=== PATIENT | female | born 1975 | race African-American/Black ===

== ENCOUNTER → 2016-05-23 | Outpatient (CLI) | payer BC | LOC: RAD 18:15 | PROVIDERS: ATTEND Physician Assistant | DX: M54.5 Low back pain (principal); M54.6 Pain in thoracic spine | CPT/HCPCS: 72146; 72148 ==

== ENCOUNTER 2016-11-21 13:24 | Emergency (ER) | payer SELFPAY ==
[2016-11-21] MEDS ORDERED: ONDANSETRON 4 MG TAB.RAPDIS PO ONE (13:38)
--- NOTE | 2016-11-21 13:53 | ER Document Report ---
ED Medical Screen (RME) - General Chief Complaint: Abdominal Pain Stated Complaint: ABDOMINAL PAIN Time Seen by Provider: 11/21/16 13:38 Notes: Patient presents with bilateral upper quadrant abdominal pain. States that she gets the pain immediately after eating. She has had some nausea and diarrhea as well. TRAVEL OUTSIDE OF THE [place] IN LAST 30 DAYS: No - Related Data Allergies/Adverse Reactions: No Known Allergies Allergy (Verified 11/21/16 13:42) Home Medications: Current Home Medications Lisinopril/Hydrochlorothiazide [Lisinopril-Hctz 10-12.5 mg Tab] 1 each PO DAILY 11/21/16 [History] d-Vuyfail-Wbj Estr/Ethin Estra [Seasonique 0.15-0.03-0.01 Tab] 1 each PO DAILY 11/21/16 [History] Past Medical History Renal/ Medical History: Denies: Hx Peritoneal Dialysis Physical Exam - Vital signs Vitals: Temp Pulse Resp BP Pulse Ox 98.5 F 91 20 140/71 H 99 11/21/16 13:32 11/21/16 13:32 11/21/16 13:32 11/21/16 13:32 11/21/16 13:32 Course - Vital Signs Vital signs: Temp Pulse Resp BP Pulse Ox 98.5 F 91 20 140/71 H 99 11/21/16 13:32 11/21/16 13:32 11/21/16 13:32 11/21/16 13:32 11/21/16 13:32
[2016-11-21 14:14] LABS: APPEARANCE,URINE SLIGHTLY-CLOUDY; BILIRUBIN,URINE NEGATIVE (NEGATIVE); GLUCOSE, URINE NEGATIVE (NEGATIVE); KETONES,URINE NEGATIVE (NEGATIVE); LEUKOCYTE ESTERASE,URINE NEGATIVE (NEGATIVE); NITRITE,URINE NEGATIVE (NEGATIVE); PROTEIN,URINE NEGATIVE (NEGATIVE); URINE SPECIFIC GRAVITY 1.009; UROBILINOGEN,URINE NEGATIVE mg/dL (<2.0)
[2016-11-21 14:15] LABS: ABSOLUTE BASOPHILS # (AUTO) 0.1 10^3/uL (0.0-0.2); ABSOLUTE EOSINOPHILS # (AUTO) 0.2 10^3/uL (0.0-0.6); ABSOLUTE LYMPHOCYTES (AUTO) 4.7 10^3/uL (0.5-4.7); ABSOLUTE MONOCYTES (AUTO) 0.5 10^3/uL (0.1-1.4); BASOPHILS % (AUTO) 0.6 % (0-2); EOSINOPHILS % (AUTO) 2.1 % (0-6); HEMATOCRIT 37.8 % (36.0-47.0); HEMOGLOBIN 13.1 g/dL (12.0-15.5); HGB HCT DIFFERENCE 1.5; LYMPHOCYTES % (AUTO) 44.8 % (13-45); MEAN CORPUSCULAR HEMOGLOBIN 30.6 pg (27.0-33.4); MEAN CORPUSCULAR HGB CONC 34.6 g/dL (32.0-36.0); MEAN CORPUSCULAR VOLUME 89 fl (80-97); MONOCYTES % (AUTO) 5.1 % (3-13); RED BLOOD COUNT 4.27 10^6/uL (3.72-5.28); RED CELL DISTRIBUTION WIDTH 13.1 % (11.5-14.0); SEGMENTED NEUTROPHILS % (AUTO) 47.4 % (42-78); WHITE BLOOD COUNT 10.5 10^3/uL (4.0-10.5)
[2016-11-21 14:26] LABS: ALANINE AMINOTRANSFERASE 36 U/L (9-52); ALBUMIN 4.5 g/dL (3.5-5.0); ALKALINE PHOSPHATASE 62 U/L (38-126); ANION GAP 11 (5-19); ASPARTATE AMINO TRANSFERASE 26 U/L (14-36); BILIRUBIN,DIRECT 0.3 mg/dL (0.0-0.4); BILIRUBIN,TOTAL 0.6 mg/dL (0.2-1.3); BLOOD UREA NITROGEN 9 mg/dL (7-20); CALCIUM 9.5 mg/dL (8.4-10.2); CARBON DIOXIDE 27 mmol/L (22-30); CHLORIDE 103 mmol/L (98-107); CREATININE RESULT 0.94 mg/dL (0.52-1.25); GLUCOSE 93 mg/dL (75-110); LIPASE 95.2 U/L (23-300); POTASSIUM 3.9 mmol/L (3.6-5.0); SODIUM 141.3 mmol/L (137-145); TOTAL PROTEIN 7.7 g/dL (6.3-8.2)
[2016-11-21] MEDS ORDERED: METOCLOPRAMIDE HCL ORAL SOLN 10 MG/10 ML UDCUP PO ONE (15:18)
[2016-11-21] MEDS ORDERED: MAG HYDROX/AL HYDROX/SIMETH SUSP 30 ML UDCUP PO ONE (15:18)
[2016-11-21] MEDS ORDERED: LIDOCAINE 2% VISCOUS SOLN 20 ML UDCUP PO ONE (15:18)
--- NOTE | 2016-11-21 15:27 | ER Document Report ---
ED General - General Chief Complaint: Abdominal Pain Stated Complaint: ABDOMINAL PAIN Time Seen by Provider: 11/21/16 13:38 Mode of Arrival: Ambulatory Information source: Patient - Patient presents emergency department a week and a half history of epigastric abdominal pain no associated nausea vomiting or diarrhea no real relationship with food or radiation to the back. No urinary symptoms fevers chills chest pain or cough. On examination well-appearing nontoxic no acute distress mild epigastric tenderness with no associated guarding rebound rigidity pulsatile dullness or hernias. Negative acute white count elevation electrolytes liver enzymes and lipase. Long discussion about the possibility of this being gastritis. She was on Celebrex until recently drinks a lot of soda guaiac-negative stool from below no acute clinical concerns for acute gallbladder or appendicitis. Discharge her on Zantac Carafate follow primary care physician 2-3 days and discussed reasons for ED return sooner TRAVEL OUTSIDE OF THE [place] IN LAST 30 DAYS: No - Related Data Allergies/Adverse Reactions: No Known Allergies Allergy (Verified 11/21/16 13:42) Home Medications: Current Home Medications Lisinopril/Hydrochlorothiazide [Lisinopril-Hctz 10-12.5 mg Tab] 1 each PO DAILY 11/21/16 [History] e-Wrclnso-Rzl Estr/Ethin Estra [Seasonique 0.15-0.03-0.01 Tab] 1 each PO DAILY 11/21/16 [History] Past Medical History - General Information source: Patient - Social History Smoking Status: Never Smoker Family History: Reviewed & Not Pertinent Renal/ Medical History: Denies: Hx Peritoneal Dialysis Review of Systems - Review of Systems Constitutional: No symptoms reported EENT: No symptoms reported Cardiovascular: No symptoms reported Respiratory: No symptoms reported Gastrointestinal: Abdominal pain. denies: Diarrhea, Nausea, Vomiting, Constipation, Blood streaked bowels, Poor appetite, Poor fluid intake, Rectal bleeding Genitourinary: No symptoms reported Neurological/Psychological: No symptoms reported Physical Exam - Vital signs Vitals: Temp Pulse Resp BP Pulse Ox 98.5 F 91 20 140/71 H 99 11/21/16 13:32 11/21/16 13:32 11/21/16 13:32 11/21/16 13:32 11/21/16 13:32 - General General appearance: Appears well, Alert - Respiratory Respiratory status: No respiratory distress Chest status: Nontender Breath sounds: Normal Chest palpation: Normal - Cardiovascular Rhythm: Regular Heart sounds: Normal auscultation Murmur: No - Abdominal Inspection: Normal - mild Epigastric abdominal tenderness associated with guarding rebound rigidity pulsatile dullness or hernias on serial abdominal exam patient in good bowel sounds. - Back Back: Normal, Nontender - Neurological Neuro grossly intact: Yes Cognition: Normal Orientation: AAOx4 [place] Coma Scale Eye Opening: Spontaneous [place] Coma Scale Verbal: Oriented Adrian Coma Scale Motor: Obeys Commands Adrian Coma Scale Total: 15 Speech: Normal Motor strength normal: LUE, RUE, LLE, RLE Sensory: Normal Course - Re-evaluation Re-evalutation: 11/21/16 23:52 No urinary symptoms fevers chills chest pain or cough. On examination well- appearing nontoxic no acute distress mild epigastric tenderness with no associated guarding rebound rigidity pulsatile dullness or hernias. Negative acute white count elevation electrolytes liver enzymes and lipase. Long discussion about the possibility of this being gastritis. She was on Celebrex until recently drinks a lot of soda guaiac-negative stool from below no acute clinical concerns for acute gallbladder or appendicitis. Discharge her on Zantac Carafate follow primary care physician 2-3 days and discussed reasons for ED return sooner - Vital Signs Vital signs: Temp Pulse Resp BP Pulse Ox 98.5 F 82 16 138/79 H 97 11/21/16 15:47 11/21/16 15:47 11/21/16 15:47 11/21/16 15:47 11/21/16 15:47 - Laboratory Result Diagrams: 11/21/16 13:45 11/21/16 13:45 Discharge - Discharge Clinical Impression: upper abdominal pain Condition: Stable Disposition: HOME, SELF-CARE Instructions: Abdominal Pain ([facility]) Additional Instructions: Abdominal Pain There are many causes of abdominal pain. Pain can mean a serious problem requiring surgery (such as appendicitis). It can also be an innocent problem that goes away on its own (such as a viral infection). Often, time must pass to determine the cause of pain. The physician does not feel that hospitalization is necessary, at present. Things may change within the next 24 hours. Call the doctor or come back for re- examination if any problems occur, such as: (1) Pain that becomes more severe, steady, or becomes concentrated in one specific area. Also, pain that is more severe with movement or coughing. (2) Vomiting that persists or becomes more frequent. (3) Blood in the vomitus, urine, or bowel movements. Blood in the stool may have a tarry or black appearance. (4) Shaking chills or fever greater than 100 degrees F. (5) The abdomen becomes more distended or swollen. (6) Bowel movements cease. (7) Failure to improve as expected. Primary care physician here in town in 3-4 days also have given you the information for the clinic if you need to see them return for increasing worsening or new Prescriptions: Sucralfate [Carafate 1 gm Tablet] 1 gm PO ACHS #15 tablet Referrals: [facility] [Provider Group] - Follow up in 3-5 days (An appointment to be seen in follow-up in 3-5 days return for increasing worsening or new)
[2016-11-21 16:08] VITALS: BP 138/79
== END 2016-11-21 16:08 | disposition home or self-care (01) ==
LOC: ER 13:24
DX: R10.13 Epigastric pain (principal)
CPT/HCPCS: 99284; 36415; 83690; 85025; 81025; 80053; 81001; S0119; J3490

== ENCOUNTER 2017-04-10 16:17 | Emergency (ER) | payer OTHER ==
[2017-04-10] MEDS ORDERED: NORMAL SALINE 1000 ML 1,000 ML IV ONE (17:20)
[2017-04-10] MEDS ORDERED: ONDANSETRON HCL INJ/PF 4 MG/2 ML SDV IV ONE (17:20)
[2017-04-10] MEDS ORDERED: KETOROLAC TROMETHAMINE INJ/PF 30 MG/1 ML SDV IV ONE (17:20)
--- NOTE | 2017-04-10 17:21 | ER Document Report ---
ED Medical Screen (RME) - General Chief Complaint: Abdominal Pain Stated Complaint: ABDOMINAL PAIN Time Seen by Provider: 04/10/17 17:18 Notes: Patient states she has a history of IBS treated with Bentyl as well as endometriosis. She states she has severe abdominal pain with painful defecation. She is also having blood in pain with urination. TRAVEL OUTSIDE OF THE [place] IN LAST 30 DAYS: No - Related Data Allergies/Adverse Reactions: No Known Allergies Allergy (Verified 04/10/17 16:24) Past Medical History - Social History Chew tobacco use (# tins/day): No Frequency of alcohol use: Rare Drug Abuse: None Renal/ Medical History: Denies: Hx Peritoneal Dialysis Physical Exam - Vital signs Vitals: Temp Pulse Resp BP Pulse Ox 99.2 F 79 18 114/63 97 04/10/17 16:38 04/10/17 16:38 04/10/17 16:38 04/10/17 16:38 04/10/17 16:38 Course - Vital Signs Vital signs: Temp Pulse Resp BP Pulse Ox 99.2 F 79 18 114/63 97 04/10/17 16:38 04/10/17 16:38 04/10/17 16:38 04/10/17 16:38 04/10/17 16:38
[2017-04-10 17:55] LABS: ABSOLUTE BASOPHILS # (AUTO) 0.1 10^3/uL (0.0-0.2); ABSOLUTE EOSINOPHILS # (AUTO) 0.2 10^3/uL (0.0-0.6); ABSOLUTE LYMPHOCYTES (AUTO) 4.9 10^3/uL (0.5-4.7); ABSOLUTE MONOCYTES (AUTO) 0.8 10^3/uL (0.1-1.4); ABSOLUTE NEUT (AUTO) 8.9 10^3/uL (1.7-8.2); BASOPHILS % (AUTO) 0.5 % (0-2); EOSINOPHILS % (AUTO) 1.3 % (0-6); HEMATOCRIT 43.1 % (36.0-47.0); HEMOGLOBIN 14.8 g/dL (12.0-15.5); HGB HCT DIFFERENCE 1.3; LYMPHOCYTES % (AUTO) 33.3 % (13-45); MEAN CORPUSCULAR HGB CONC 34.3 g/dL (32.0-36.0); MEAN CORPUSCULAR VOLUME 88 fl (80-97); MONOCYTES % (AUTO) 5.1 % (3-13); RED BLOOD COUNT 4.92 10^6/uL (3.72-5.28); RED CELL DISTRIBUTION WIDTH 13.3 % (11.5-14.0); SEGMENTED NEUTROPHILS % (AUTO) 59.8 % (42-78); WHITE BLOOD COUNT 14.8 10^3/uL (4.0-10.5)
[2017-04-10 18:15] LABS: ALANINE AMINOTRANSFERASE 33 U/L (9-52); ALBUMIN 4.3 g/dL (3.5-5.0); ALKALINE PHOSPHATASE 68 U/L (38-126); ANION GAP 12 (5-19); ASPARTATE AMINO TRANSFERASE 18 U/L (14-36); BILIRUBIN,DIRECT 0.2 mg/dL (0.0-0.4); BLOOD UREA NITROGEN 13 mg/dL (7-20); CALCIUM 9.3 mg/dL (8.4-10.2); CARBON DIOXIDE 29 mmol/L (22-30); CHLORIDE 102 mmol/L (98-107); CREATININE RESULT 0.97 mg/dL (0.52-1.25); GLUCOSE 81 mg/dL (75-110); LIPASE 93.6 U/L (23-300); POTASSIUM 3.8 mmol/L (3.6-5.0); SODIUM 143.1 mmol/L (137-145); TOTAL PROTEIN 7.3 g/dL (6.3-8.2)
[2017-04-10 18:27] LABS: APPEARANCE,URINE SLIGHTLY-CLOUDY; BILIRUBIN,URINE NEGATIVE (NEGATIVE); GLUCOSE, URINE NEGATIVE (NEGATIVE); KETONES,URINE TRACE mg/dL (NEGATIVE); LEUKOCYTE ESTERASE,URINE NEGATIVE (NEGATIVE); NITRITE,URINE NEGATIVE (NEGATIVE); PROTEIN,URINE NEGATIVE (NEGATIVE); URINE SPECIFIC GRAVITY 1.015; UROBILINOGEN,URINE NEGATIVE mg/dL (<2.0)
--- NOTE | 2017-04-10 19:21 | ER Document Report ---
ED General - General Chief Complaint: Abdominal Pain Stated Complaint: ABDOMINAL PAIN Time Seen by Provider: 04/10/17 17:18 TRAVEL OUTSIDE OF THE [place] IN LAST 30 DAYS: No - HPI Notes: Patient is a 41-year-old female with a history of endometriosis, IBS, HTN who presents the ED complaining of umbilical abdominal pain, left lower quadrant abdominal pain and epigastric abdominal pain 2 days. Patient states that she has had a pain similar to this 3 or 4 times in the past. Patient states that last month she had colonoscopy, endoscopy and ultrasound performed which were relatively unremarkable per the patient. Patient states that one provider told her that she may have diverticulitis. Pt states that she has had decreased PO intake due to the n/v associated. She had two loose stool yesterday, none today. The pain does not radiate otherwise. Pt states that she has to move slow bc of the pain in the abdomen. Patient denies any drug allergies or other significant past medical history. Patient states that on Saturday she had one episode where she had burning with urination and possibly a pink tint when she wiped, but has not had any issues with urination since then. Denies any headache, fever, URI, sore throat, chest pain, palpitations, syncope, cough, shortness of breath, wheeze, dyspnea, urinary retention, dysuria, hematuria, back pain, loss of control of bowel or bladder, numbness/tingling, saddle anesthesia, muscle paralysis/weakness, or rash. - Related Data Allergies/Adverse Reactions: No Known Allergies Allergy (Verified 04/10/17 16:24) Past Medical History - Social History Smoking Status: Never Smoker Chew tobacco use (# tins/day): No Frequency of alcohol use: Rare Drug Abuse: None Family History: Reviewed & Not Pertinent Patient has suicidal ideation: No Patient has homicidal ideation: No Renal/ Medical History: Denies: Hx Peritoneal Dialysis Past Surgical History: Reports: Hx Oral Surgery - wisdom teeth, Hx Tonsillectomy Review of Systems - Review of Systems Notes: REVIEW OF SYSTEMS: CONSTITUTIONAL : Denies fever, chills, or sweats. Denies recent illness. EENT: Denies eye, ear, throat, or mouth pain or symptoms. Denies nasal or sinus congestion or discharge. Denies throat, tongue, or mouth swelling or difficulty swallowing. CARDIOVASCULAR: Denies chest pain. Denies palpitations or racing or irregular heart beat. Denies ankle edema. RESPIRATORY: Denies cough, cold, or chest congestion. Denies shortness of breath, difficulty breathing, or wheezing. GASTROINTESTINAL: see hpi. GENITOURINARY: Denies difficulty urinating, painful urination, burning, frequency, blood in urine, or discharge. FEMALE GENITOURINARY: Denies vaginal bleeding, heavy or abnormal periods, irregular periods. Denies vaginal discharge or odor. MUSCULOSKELETAL: Denies back or neck pain or stiffness. Denies joint pain or swelling. SKIN: Denies rash, lesions or sores. NEUROLOGICAL: Denies dizziness or lightheadedness. Denies headache. Denies problems with gait or speech. Denies sensory loss, numbness, or tingling. ALL OTHER SYSTEMS REVIEWED AND NEGATIVE. Dictation was performed using sifonr voice recognition software Physical Exam - Vital signs Vitals: Temp Pulse Resp BP Pulse Ox 99.2 F 79 18 114/63 97 04/10/17 16:38 04/10/17 16:38 04/10/17 16:38 04/10/17 16:38 04/10/17 16:38 Notes: PHYSICAL EXAMINATION: GENERAL: Well-appearing, well-nourished and in no acute distress. A&Ox4 HEAD: Atraumatic, normocephalic. EYES: Pupils equal round and reactive to light, extraocular movements intact, sclera anicteric, conjunctiva are normal. ENT: Nares patent and without discharge. oropharynx clear without exudates. No tonsilar hypertrophy or erythema. Moist mucous membranes. NECK: Normal range of motion, supple without lymphadenopathy LUNGS: Breath sounds clear to auscultation bilaterally and equal. No wheezes rales or rhonchi. HEART: Regular rate and rhythm without murmurs, rubs, gallops. ABDOMEN: Soft, nondistended abdomen. No guarding, no rebound. No masses appreciated. Normal bowel sounds present. No CVA tenderness bilaterally. + tenderness to palp of the epigastrum, LLQ, and umbilicus to palp. No hernias appreciated. Musculoskeletal: FROM to passive/active. Strength 5+/5. Extremities: No cyanosis, clubbing, or edema b/l. Peripheral pulses 2+. Capillary refill less than 3 seconds. NEUROLOGICAL: Normal speech, normal gait. Normal sensory, motor exams PSYCH: Normal mood, normal affect. SKIN: Warm, Dry, normal turgor, no rashes or lesions noted. Course - Re-evaluation Re-evalutation: 04/10/17 20:54 Patient is an afebrile, well-hydrated, 41-year-old female who presents to the ED with abdominal pain, probable early diverticulitis. Vitals are stable. PE is otherwise unremarkable. CBC showed an elevated white count. CMP and lipase otherwise unremarkable. Urinalysis and unremarkable for any acute pathology. Chest x-ray was unremarkable for any acute pathology. CT of the abdomen/pelvis showed probable early diverticulitis, see results. Patient is tolerating p.o. Low suspicion/risk for acute appendicitis, bowel obstruction, acute cholecystitis, acute cholangitis, perforated diverticulitis, incarcerated hernia, pancreatitis, perforated ulcer, peritonitis, sepsis, pelvic inflammatory disease, ectopic , tubo-ovarian abscess, ovarian torsion, or other systemic emergent condition at this time. Patient is aware that her condition can change from initial presentation and she needs to monitor symptoms closely and seek medical attention if any acute changes. I will send her home with a prescription for Cipro and Flagyl to take as directed. Conservative measures otherwise for symptoms. Recheck with your PCM in 3-5 days. Consider consult with a pet crematory worker. Return to the ED with any worsening/concerning symptoms otherwise as reviewed in discharge. Patient is in agreement. - Vital Signs Vital signs: Temp Pulse Resp BP Pulse Ox 99.2 F 79 18 114/63 97 04/10/17 16:38 04/10/17 16:38 04/10/17 16:38 04/10/17 16:38 04/10/17 16:38 - Laboratory Result Diagrams: 04/10/17 17:37 04/10/17 17:37 Laboratory results interpreted by me: 04/10/17 04/10/17 17:37 17:50 WBC 14.8 H Absolute Neutrophils 8.9 H Absolute Lymphocytes 4.9 H Urine Ketones TRACE H Urine Ascorbic Acid 20 H Discharge - Discharge Clinical Impression: Diverticulitis Condition: Stable Disposition: HOME, SELF-CARE Instructions: Diverticulitis ([facility]), Ciprofloxacin ([facility]), Metronidazole ([facility]) Additional Instructions: Maintain adequate fluid and food intake Rabun diet (B.R.A.T.) Bananas, rice, apples, toast, etc Zofran as needed tylenol if needed Monitor for any worsening symptoms Make sure you are staying hydrated enough to urinate and have normal BM's Recheck with your PCM in 3-5 days Consider consult with Gastroenterology for ongoing/worsening symptoms Return to the ED with any worsening symptoms and/or development of fever, headache, chest pain, palpitations, syncope, shortness of breath, trouble breathing, abdominal pain, n/v/d, blood in stool/urine, weakness, or other worsening symptoms that are concerning to you. Prescriptions: Ciprofloxacin HCl [Cipro 500 mg Tablet] 500 mg PO BID #20 tablet Metronidazole [Flagyl] 500 mg PO TID #30 tablet Ondansetron [Zofran Odt 4 mg Tablet] 1 - 2 tab PO Q4H PRN #15 tab.rapdis PRN Reason: For Nausea/Vomiting Referrals: ENEIDA HYDE PA-C [Primary Care Provider] - Follow up in 3-5 days WILLIAM HERNADEZ MD [ACTIVE STAFF] - Follow up as needed
--- NOTE | 2017-04-10 20:17 | RADIOLOGY REPORT (SQ) ---
EXAM DESCRIPTION: CHEST PA/LAT COMPLETED DATE/TIME: 04/10/2017 7:57 pm REASON FOR STUDY: epigastric pain COMPARISON: None. EXAM PARAMETERS: NUMBER OF VIEWS: two views TECHNIQUE: Digital Frontal and Lateral radiographic views of the chest acquired. RADIATION DOSE: NA LIMITATIONS: none FINDINGS: LUNGS AND PLEURA: No opacities, masses or pneumothorax. No pleural effusion. MEDIASTINUM AND HILAR STRUCTURES: No masses or contour abnormalities. HEART AND VASCULAR STRUCTURES: Heart normal size. No evidence for failure. BONES: No acute findings. HARDWARE: None in the chest. OTHER: No other significant finding. IMPRESSION: NO SIGNIFICANT RADIOGRAPHIC FINDING IN THE CHEST. TECHNICAL DOCUMENTATION: JOB ID: [id number] [employer]- All Rights Reserved
--- NOTE | 2017-04-10 20:23 | RADIOLOGY REPORT (SQ) ---
EXAM DESCRIPTION: CT ABD/PELVIS WITH IV ONLY COMPLETED DATE/TIME: 04/10/2017 8:06 pm REASON FOR STUDY: abdominal pain COMPARISON: None. TECHNIQUE: CT scan of the abdomen and pelvis performed using helical scanning technique with dynamic intravenous contrast injection. No oral contrast. Images reviewed with lung, soft tissue, and bone windows. Reconstructed coronal and sagittal MPR images reviewed. Delayed images for evaluation of the urinary system also acquired. All images stored on PACS. All CT scanners at this facility use dose modulation, iterative reconstruction, and/or weight based d osing when appropriate to reduce radiation dose to as low as reasonably achievable (ALARA). [facility]: Dose Right [facility]: CareDose [facility]: Dose Right [facility]: Teradose 4D [facility]: [employer]Gossip CONTRAST TYPE AND DOSE: contrast/concentration: Isovue 370.00 mg/ml; Total Contrast Delivered: 93.0 ml; Total Saline Delivered: 45.0 ml RENAL FUNCTION: BUN 13 creatinine 0.97. RADIATION DOSE: CT Rad equipment meets quality standard of care and radiation dose reduction techniq ues were employed. CTDIvol: 12.9 - 15.5 mGy. DLP: 1503 mGy-cm.. LIMITATIONS: None. FINDINGS: LOWER CHEST: No significant findings. No nodules or infiltrates. LIVER: Normal size. 1 cm lesion in the right lobe with enhancement characteristics consistent with a n incidental hemangioma. No dilated ducts. SPLEEN: Normal size. No focal lesions. PANCREAS: No masses. No significant calcifications. No adjacent inflammation or peripancreatic fluid collections. Pancreatic duct not dilated. GALLBLADDER: No identified stones by CT criteria. No inflammatory changes to suggest cholecystitis. ADRENAL GLANDS: No significant masses or asymmetry. RIGHT KIDNEY AND URETER: No solid masses. No significant calcifications. No hydronephrosis or hyd roureter. LEFT KIDNEY AND URETER: No solid masses. No significant calcifications. No hydronephrosis or hydr oureter. AORTA AND VESSELS: No aneurysm. No dissection. Renal arteries, SMA, celiac without stenosis. RETROPERITONEUM: No retroperitoneal adenopathy, hemorrhage or masses. BOWEL AND PERITONEAL CAVITY: Scattered diverticuli in the descending colon with mild edema and fluid in the adjacent soft tissues. APPENDIX: Normal. PELVIS: No mass. Moderate free fluid. Normal bladder. ABDOMINAL WALL: No masses. No hernias. BONES: No significant or acute findings. OTHER: No other significant finding. IMPRESSION: 1. SCATTERED DIVERTICULI IN THE DESCENDING COLON WITH MILD EDEMA AND FLUID, POSSIBLY REPRESENTING EAR LY DIVERTICULITIS. FLUID EXTENDS ALONG THE PERICOLIC GUTTER TO THE PELVIS. NO EVIDENCE OF ABSCESS. 2. SMALL HEMANGIOMA IN THE LIVER. 3. NO OTHER SIGNIFICANT OR ACUTE FINDING IN THE ABDOMEN OR PELVIS ON CT SCAN WITH IV CONTRAST. TECHNICAL DOCUMENTATION: JOB ID: [id number] Quality ID # [id number]: Final reports with documentation of one or more dose reduction techniques (e.g., Au tomated exposure control, adjustment of the mA and/or kV according to patient size, use of iterative reconstruction technique) 2010 [employer]- All Rights Reserved
[2017-04-10] MEDS ORDERED: METRONIDAZOLE 500 MG TABLET PO ONE (21:01)
[2017-04-10 21:48] VITALS: BP 116/63
== END 2017-04-10 21:36 | disposition home or self-care (01) ==
LOC: ER 16:17
DX: K57.92 Diverticulitis of intestine, part unspecified, without perforation or abscess without bleeding (principal); R10.9 Unspecified abdominal pain; K58.9 Irritable bowel syndrome, unspecified; I10 Essential (primary) hypertension; R10.33 Periumbilical pain; R10.32 Left lower quadrant pain; R10.13 Epigastric pain
CPT/HCPCS: 99284; 96361; 96374; 96375; 36415; 83690; 85025; 81025; 80053; 81001; 71020; 74177; J1885; J2405; J7030

== ENCOUNTER 2018-09-29 10:24 | Emergency (ER) | payer BC ==
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
[2018-09-29] MEDS ORDERED: KETOROLAC TROMETHAMINE 60 MG/2 ML SDV IM ONE (11:37)
[2018-09-29 12:06] VITALS: BP 136/76
== END 2018-09-29 12:01 | disposition home or self-care (01) ==
LOC: ER 10:24
DX: M54.41 Lumbago with sciatica, right side (principal); W18.39XA Other fall on same level, initial encounter; Y92.832 Beach as the place of occurrence of the external cause; I10 Essential (primary) hypertension
CPT/HCPCS: 99283; 96372; J1885

== ENCOUNTER → 2020-03-04 | Outpatient (CLI) | payer BC ==
--- NOTE | 2020-03-04 08:36 | RADIOLOGY REPORT (SQ) ---
EXAM DESCRIPTION: U/S ABDOMEN LIMITED W/O DOP IMAGES COMPLETED DATE/TIME: 03/04/2020 8:00 am REASON FOR STUDY: ABNORMAL LEVELS OF OTHER SERUM ENZYMES R74.8 ABNORMAL LEVELS OF OTHER SERUM ENZYM ES COMPARISON: 12/28/2017 TECHNIQUE: Dynamic and static grayscale images acquired of the abdomen and recorded on PACS. Additio nal selected color Doppler and spectral images recorded. LIMITATIONS: None. FINDINGS: PANCREAS: No masses. Visualized pancreatic duct normal caliber. LIVER: Mild hepatomegaly. Steatosis. The liver demonstrates heterogeneous echogenicity. There are 2 small hypoechoic lesions. In the right lobe there is a 1.5 x 1.3 x 1.2 cm lesion. This is avascul ar. In the left lobe there is a 8.8 x 9.7 x 8.2 cm lesion with internal flow. Recommend CT for furt her characterization. Neoplasm cannot be excluded. LIVER VASCULATURE: Normal directional flow of the main portal vein and hepatic veins. GALLBLADDER: Gallstones. No wall thickening. There is sludge. Hypo attenuation adjacent to the gal lbladder most likely represents focal fatty sparing. ULTRASOUND-DETECTED NGO'S SIGN: Negative. INTRAHEPATIC DUCTS AND COMMON INFERIOR VENA CAVA: Normal flow. AORTA: No aneurysm. RIGHT KIDNEY: Normal size. Normal echogenicity. No solid or suspicious masses. No hydronephrosis. No calcifications. PERITONEAL AND RIGHT PLEURAL SPACE: No ascites or effusions. OTHER: No other significant findings. IMPRESSION: Large mass in the left lobe of liver. Recommend CT with contrast for further characteri zation. Neoplasm cannot be excluded. Smaller hypoattenuating lesion could represent cyst, hemangiom a or metastatic focus. There is steatosis. Mild hepatomegaly. TECHNICAL DOCUMENTATION: JOB ID: [id number] 2010 [employer]- All Rights Reserved Reading location - IP/workstation name: [email or web address]
== END ==
LOC: RAD 07:26
PROVIDERS: ATTEND Physician Assistant
DX: R74.8 Abnormal levels of other serum enzymes (principal)
CPT/HCPCS: 76705

== ENCOUNTER → 2020-04-01 | Outpatient (CLI) | payer BC ==
--- NOTE | 2020-04-01 13:11 | RADIOLOGY REPORT (SQ) ---
EXAM DESCRIPTION: CT ABDOMEN COMBO IMAGES COMPLETED DATE/TIME: 04/01/2020 9:53 am REASON FOR STUDY: (R16.0)HEPATOMEGALY, NOT ELSEWHERE CLASSIFIED R16.0 HEPATOMEGALY, NOT ELSEWHERE C LASSIFIED COMPARISON: Ultrasound of the abdomen from 03/04/2020, CT of the abdomen pelvis with contrast from 12/28/2017 TECHNIQUE: CT scan of the abdomen performed with and without intravenous contrast, and without oral contrast. Contrasted imaging performed using helical scanning technique with dynamic intravenous cont rast injection. Images reviewed with lung, soft tissue, and bone windows. Reconstructed coronal and s agittal MPR images reviewed. Delayed images for evaluation of the urinary system also acquired and ev aluated. All images stored on PACS. All CT scanners at this facility use dose modulation, iterative reconstruction, and/or weight based d osing when appropriate to reduce radiation dose to as low as reasonably achievable (ALARA). [facility]: Dose Right [facility]: CareDose [facility]: Dose Right [facility]: Teradose 4D [facility]: GET IT Mobile CONTRAST TYPE AND DOSE: Contrast/concentration: Isovue 350.00 mmol/ml; Total Contrast Delivered: 89. 0 ml; Total Saline Delivered: 70.0 ml RENAL FUNCTION: None required. The patient is less than 50 years old. RADIATION DOSE: CT Rad equipment meets quality standard of care and radiation dose reduction techniq ues were employed. CTDIvol: 11.2 - 12.2 mGy. DLP: 1276 mGy-cm. LIMITATIONS: None. FINDINGS: NONCONTRASTED IMAGING: Hepatic steatosis. There is no nephrolithiasis. POSTCONTRASTED IMAGING: LOWER CHEST: No acute abnormality. LIVER: The morphology of the liver is noncirrhotic. In segment 6 of the liver (image 36 of series 2) there is a 9.4 x 7.9 x 9.5 cm mass (image 37 of series 61) that has increased in size since the CT f rom 12/28/2017 ; on the noncontrast phase the mass is hypodense with an internal attenuation of 38 Houn sfield units and it has defined margin. On the portal venous phase the mass demonstrates heterogeneo us enhancement and it is isodense to the hepatic parenchyma on the delayed phase. There are several others lesions scattered throughout the liver that are hyperdense relative to the h epatic parenchyma on the noncontrast phase and demonstrate homogeneous enhancement on the portal veno us phase ; the contrast is retained on the delayed phase. For reference these include the 18 mm lesi on at the junction of segments 6 and 7 (image 16 of series 2) and the 14 mm lesion in segment 3 (imag e 24 of series 2). SPLEEN: No splenomegaly or splenic mass. PANCREAS: No acute gross abnormality of the pancreas GALLBLADDER: No acute gross abnormality of the pancreas. ADRENAL GLANDS: No mass or asymmetry. RIGHT KIDNEY AND URETER: Duplex collecting system draining into a single ureter. There is no solid m ass or hydronephrosis. LEFT KIDNEY AND URETER: There is no solid mass or hydronephrosis. AORTA AND VESSELS: Standard arterial vascular anatomy. The abdominal aorta is nonaneurysmal. RETROPERITONEUM: No retroperitoneal adenopathy, hemorrhage or mass. BOWEL AND PERITONEAL CAVITY: No bowel obstruction, bowel wall thickening or mesenteric/ omental infla mmation. No mesenteric adenopathy or free intraperitoneal fluid. ABDOMINAL WALL: Fat containing umbilical hernia. BONES: No acute abnormality. OTHER: No other findings. IMPRESSION: 1. 9.4 x 7.9 x 9.5 cm mass (image 36 of series 2) in segment 6 of the liver that has inc reased in size compared to the CT from 12/28/2017. The mass is favored to represent a hemangioma. 2. Numerous hyperdense homogeneously enhancing lesions throughout the liver that measure up to 18 mm in diameter and are favored to represent flash filling hemangiomas. TECHNICAL DOCUMENTATION: JOB ID: [id number] Quality ID # [id number]: Final reports with documentation of one or more dose reduction techniques (e.g., Au tomated exposure control, adjustment of the mA and/or kV according to patient size, use of iterative reconstruction technique) 2010 [employer]- All Rights Reserved Reading location - IP/workstation name: [email or web address]
== END ==
LOC: RAD 09:19
PROVIDERS: ATTEND Physician Assistant
DX: K76.9 Liver disease, unspecified (principal)
CPT/HCPCS: 74170; 82565